=== PATIENT | male | born 2000 | race Two or more races ===

== ENCOUNTER 2022-05-21 17:19 | Emergency (ER) | payer MEDICAID, OTHER ==
[~2022-05-21] VITALS: Ht 185.4 cm; Wt 105.0 kg
[2022-05-21 18:43] VITALS: BP 134/94
[2022-05-21] MEDS ORDERED: ACET-1158 PO (20:31)
[2022-05-21] MEDS ORDERED: AMOX-277 PO (20:31)
[2022-05-21] MEDS ORDERED: PRED20TA2 PO (20:31)
== END 2022-05-21 20:39 | disposition home or self-care (01) ==
LOC: ER 17:19
DX: J06.9 Acute upper respiratory infection, unspecified (principal); F12.10 Cannabis abuse, uncomplicated; Z20.822 Contact with and (suspected) exposure to COVID-19
CPT/HCPCS: 36415; 87426; 87804